=== PATIENT | female | born 1940 | race Two or more races ===

== ENCOUNTER 2017-10-11 10:29 | Inpatient (IN) | payer MEDICAID ==
[~2017-10-11] VITALS: Ht 152.4 cm; Wt 73.0 kg
--- NOTE | 2017-10-11 10:35 | NUR ---
AAOX3, BIBRA 62 FROM HOME C/O MID BACK PAIN S/P TRIPPED AND FALL, -KO. RR IS EVEN AND UNLABORED WITH NAD NOTED. SKIN IS WARM AND DRY. AWAITING MD FOR EVAL.
[2017-10-11] MEDS ORDERED: ONDANSETRON HCL/PF 4 MG/2 ML VIAL ONE (11:46)
[2017-10-11] MEDS ORDERED: MORPHINE SULFATE INJ 4 MG/ML DISP.SYRIN ONE ×2 (11:47→14:08)
[2017-10-11 11:53] LABS: BASOPHILS # (AUTO) 0.1 /CMM (0.0-0.2); EOSINOPHILS % (AUTO) 1.9 % (0.0-6.0); HEMATOCRIT 44 % (33-45); HEMOGLOBIN 14.8 g/dL (11.5-14.8); LYMPHOCYTES # (AUTO) 2.6 /CMM (0.8-4.8); LYMPHOCYTES % (AUTO) 21.3 % (20.0-44.0); MEAN CORPUSCULAR HGB CONC 34 g/dl (31.0-36.0); MEAN CORPUSCULAR VOLUME 90 fL (82-100); MONOCYTES # (AUTO) 0.8 /CMM (0.1-1.30); MONOCYTES % (AUTO) 6.5 % (2.0-12.0); NEUTROPHILS # (AUTO) 8.7 /CMM (1.8-8.9); NEUTROPHILS % (AUTO) 69.3 % (43.0-81.0); PLATELET COUNT (AUTO) 189 /CMM (150-450); RDW COEFFICIENT OF VARIATION 12.9 (11.5-15.0); RED BLOOD CELL COUNT(AUTO) 4.88 MIL/uL (4.0-5.2); WHITE BLOOD COUNT (AUTO) 12.4 K/uL (4.3-11.0)
[2017-10-11] MEDS ORDERED: ONDANSETRON HCL/PF 4 MG/2 ML VIAL IV ONE (12:00)
[2017-10-11] MEDS ORDERED: MORPHINE SULFATE INJ 2 MG/ML DISP.SYRIN IV ONE ×2 (12:00→14:30)
[2017-10-11 12:02] LABS: CALCIUM, SERUM 9.5 mg/dL (8.5-10.1); CARBON DIOXIDE 29 mmol/L (21-32); CHLORIDE 102 mmol/L (98-107); GLUCOSE 87 mg/dL (74-106); SODIUM SERUM 137 mmol/L (136-145); UREA NITROGEN, BLOOD 22 mg/dL (7-18)
[2017-10-11] MEDS ORDERED: LABETALOL HCL IV 100MG VIAL IV ONE ×2 (12:30)
[2017-10-11] MEDS ORDERED: TDAP [DIPH/PERTUSSIS/TET] 0.5 ML VIAL IM ONE ×2 (13:43→14:00)
--- NOTE | 2017-10-11 13:47 | NUR ---
Patient discharged to home in stable condition. Written and verbal after care instructions given. Patient verbalizes understanding of instruction.
--- NOTE | 2017-10-11 13:47 | NUR ---
IV removed. Catheter intact and site benign. Pressure and 4x4 applied to site. No bleeding noted.
--- NOTE | 2017-10-11 14:11 | NUR ---
SUP CALLED FOR MS BED
[2017-10-11] MEDS ORDERED: OMEP20TA5 PO (15:00)
[2017-10-11] MEDS ORDERED: BENA40TA8 PO (15:00)
[2017-10-11] MEDS ORDERED: OXYB5TAB11 PO (15:00)
[2017-10-11] MEDS ORDERED: PRED5TAB PO (15:00)
[2017-10-11] MEDS ORDERED: CYCL5TAB PO (15:00)
--- NOTE | 2017-10-11 15:00 | NUR ---
REPORT GIVEN TO TOD BUTTS FOR JUDSON
--- NOTE | 2017-10-11 15:09 | NUR ---
GIVEN REPORT TO TOD MS ROOM 202
[2017-10-11] MEDS ORDERED: ONDANSETRON HCL/PF 4 MG/2 ML VIAL IVP PRN (15:30)
[2017-10-11] MEDS ORDERED: Z GUARD REMEDY 2 OZ OINT TP PRN (15:30)
[2017-10-11] MEDS ORDERED: HYDROCODONE/APAP 5/325MG 1 EACH TABLET PO PRN (15:30)
--- NOTE | 2017-10-11 15:40 | NUR ---
OPTIMIZATION ANALYST NOTES PATIENT RECEIVED FROM ER VIA GURNEY, AWAKE ALERT AND VERBALLY RESPONSIVE, ABLE TO MAKE NEEDS KNOWN. RESPIRATIONS EVEN AND UNLABORED, SPO2 REMAINS STABLE ON RA. PATIENT CONTINUED ON PAIN MANAGEMENT, PT REPORTS PAIN UPON MOVEMENT, OFFERED PAIN MEDICATION X3 REFUSING AT THIS TIME "IT ONLY HURTS WHEN I MOVE AND I DONT WANT TO BE MOVED AROUND AT THIS TIME, I WANT TO REST I DONT WANT TO BE BOTHERED AT THIS TIME" EXPLAINED TO PT UNIT PROTOCOL TO CHECK SKIN PER PT WANTS TO REATTEMPT "LATER" . DR MURGUIA MADE AWARE PT IS ON UNIT, WILL CONTINUE TO CARRY OUT ADMISSION ORDERS, PT ORIENTED TO ROOM AND UNIT, FAMILY AT BEDSIDE. IV SITE TO LEFT AC 20G PATENT AND INTACT NO REDNESS OR INFILTRATION NOTED, WILL CONTINUE TO MONITOR
[2017-10-11 16:00] VITALS: BP 156/72
[2017-10-11] MEDS: ENOXAPARIN SODIUM 40 MG/0.4 ML DISP.SYRIN SQ SCH (17:15)
--- NOTE | 2017-10-11 19:03 | NUR ---
RN CLOSING NOTES PATIENT AWAKE ALERT AND VERBALLY RESPONSIVE, ABLE TO MAKE NEEDS KNOWN. RESPIRATIONS EVEN AND UNLABORED, SPO2 REMAINS STABLE ON RA. PATIENT CONTINUED ON PAIN MANAGEMENT, PT REPORTS PAIN UPON MOVEMENT, OFFERED PAIN MEDICATION X3 REFUSING AT THIS TIME "IT ONLY HURTS WHEN I MOVE AND I DONT WANT TO BE MOVED AROUND AT THIS TIME, I WANT TO REST I DONT WANT TO BE BOTHERED AT THIS TIME" . PATIENT AGREED TO SKIN CHECK AND PICTURES IN CHART, WILL CONTINUE TO CARRY OUT ADMISSION ORDERS, PT ORIENTED TO ROOM AND UNIT, FAMILY AT BEDSIDE. IV SITE TO LEFT AC 20G PATENT AND INTACT NO REDNESS OR INFILTRATION NOTED, WILL CONTINUE TO MONITOR AND ENDORSE TO NEXT SHIFT FOR CONTINUITY OF CARE
[2017-10-11 20:00] VITALS: BP 105/67
[2017-10-11] MEDS: ACETAMINOPHEN 325 MG TABLET PO PRN (20:46)
--- NOTE | 2017-10-12 06:38 | NUR ---
MS RN NOTES AWAKE & RESPONSIVE. NOT IN ANY DISTRESS. NO SOB NOTED. DENIES ANY PAIN OR DISCOMFORT AT THIS TIME. WITH IV-HL PATENT & INTACT. CALL LIGHT WITHIN REACH. BED IN LOWEST POSITION. SR UP X 3 WITH BED ALARM ON FOR SAFETY. WILL ENDORSE TO NEXT SHIFT.
[2017-10-12 06:54] LABS: BASOPHILS % (AUTO) 0.3 % (0.0-2.0); EOSINOPHILS % (AUTO) 2.5 % (0.0-6.0); HEMATOCRIT 40 % (33-45); HEMOGLOBIN 13.6 g/dL (11.5-14.8); LYMPHOCYTES % (AUTO) 23.1 % (20.0-44.0); MEAN CORPUSCULAR HGB CONC 34 g/dl (31.0-36.0); MEAN CORPUSCULAR VOLUME 90 fL (82-100); MONOCYTES # (AUTO) 0.4 /CMM (0.1-1.30); MONOCYTES % (AUTO) 4.7 % (2.0-12.0); NEUTROPHILS # (AUTO) 6.1 /CMM (1.8-8.9); NEUTROPHILS % (AUTO) 69.4 % (43.0-81.0); PLATELET COUNT (AUTO) 157 /CMM (150-450); RDW COEFFICIENT OF VARIATION 13.6 (11.5-15.0); RED BLOOD CELL COUNT(AUTO) 4.43 MIL/uL (4.0-5.2); WHITE BLOOD COUNT (AUTO) 8.7 K/uL (4.3-11.0)
--- NOTE | 2017-10-12 07:09 | NUR ---
MS/RN Patient received Patient received from restaurant shift supervisor. Sleeping soundly, appears in no distress. Call light within reach, safety measures in place. Will continue to monitor and ensure safety.
[2017-10-12 07:15] LABS: ALANINE AMINOTRANSFERASE 26 U/L (12-78); ALKALINE PHOSPHATASE 66 U/L (46-116); ASPARTATE AMINOTRANSFERASE 18 U/L (15-37); BILIRUBIN,TOTAL 0.5 mg/dL (0.2-1.0); CALCIUM, SERUM 9.4 mg/dL (8.5-10.1); CARBON DIOXIDE 29 mmol/L (21-32); CHLORIDE 105 mmol/L (98-107); GLUCOSE 79 mg/dL (74-106); PHOSPHORUS 4.5 mg/dL (2.5-4.9); POTASSIUM 4.7 mmol/L (3.5-5.1); SODIUM SERUM 139 mmol/L (136-145); UREA NITROGEN, BLOOD 20 mg/dL (7-18)
[2017-10-12 07:24] LABS: CHOLESTEROL 181 mg/dL (<200); HDL CHOLESTEROL 44 mg/dL (40-60); LDL 117 mg/dL (0-99); THYROID STIMULATING HORMONE 1.931 uIU/mL (0.358-3.74); TRIGLYCERIDES 137 mg/dL (30-150)
[2017-10-12 07:25] LABS: IRON, SERUM 81 ug/dl (50-175); TOTAL IRON BINDING CAPACITY 293 ug/dl (250-450)
[2017-10-12 08:00] VITALS: BP 194/98
[2017-10-12] MEDS: PANTOPRAZOLE 40 MG TABLET.DR PO SCH (08:08)
[2017-10-12] MEDS: BENAZEPRIL HCL 20 MG TABLET PO SCH (08:08)
[2017-10-12] MEDS: OXYBUTYNIN CHLORIDE 5 MG TABLET PO SCH (08:08)
[2017-10-12] MEDS: ACETAMINOPHEN 325 MG TABLET PO PRN (08:08)
[2017-10-12] MEDS: predniSONE 5 MG TABLET PO SCH (08:08)
[2017-10-12 08:33] VITALS: BP 194/90
--- NOTE | 2017-10-12 09:15 | NUR ---
MS/RN 2D echo 2Decho carried out at bedside
[2017-10-12 09:30] VITALS: BP 122/78
--- NOTE | 2017-10-12 09:31 | NUR ---
MS/RN Hypertension Patient hypertensive at 194/90, morning medications administered. BP rechecked after one hour, now 122/78.
--- NOTE | 2017-10-12 09:41 | NUR ---
MS/RN PT eval PT eval on hold until clarification from Dr Espitia. Patient has acute versus chronic compression fracture of T6.
--- NOTE | 2017-10-12 10:59 | NUR ---
MS/RN [facility] called to order corest brace for patient. Face sheet and doctors order faxed to company, freezer laboratory technician will be out to fit patient.
--- NOTE | 2017-10-12 12:29 | NUR ---
MS/RN Corset brace Patient fitted for corset brace.
--- NOTE | 2017-10-12 15:15 | NUR ---
MS/RN S/B William Espitia Seen by Dr Espitia's SOCIAL CONTACT WORKER student. Orders noted and carried out.
[2017-10-12 16:00] VITALS: BP 143/76
--- NOTE | 2017-10-12 16:36 | NUR ---
MS/lockstitch pocket setter update Family at bedside and updated as to plan of care. Patients daughter Gita requesting to be called by MD in morning.
--- NOTE | 2017-10-12 17:25 | NUR ---
MS/RN Hold discharge Discharge order entered by William Espitia. Informed that patient's family are requesting for patient to stay one more day as nobody is able to stay with patient tonight.
--- NOTE | 2017-10-12 18:25 | NUR ---
MS/RN End note No changes in condition. Patient requires frequent reinforcement of spinal precautions, encouraged to wear brace at all times. Family at bedside and updated as to plan of care. For discharge tomorrow, exit care prepared. Will endorse to mold shifter.
[2017-10-12] MEDS: ENOXAPARIN SODIUM 40 MG/0.4 ML DISP.SYRIN SQ SCH (21:12)
[2017-10-12 21:43] VITALS: BP 166/84
[2017-10-13] MEDS: ACETAMINOPHEN 325 MG TABLET PO PRN (05:23)
[2017-10-13 05:59] VITALS: BP 198/110
--- NOTE | 2017-10-13 05:59 | NUR ---
MS RN NOTES PT C/O CHEST PAIN. BP 198/110, HR 63, T 98.1 RR 20 O2 SAT 100%. CALLED [facility]. JUANITA MADE AWARE RE PT'S CONDITION. PT ALSO COMPLAINING OF GAS PAIN. WITH NEW ORDERS MADE. ORDERS NOTED AND CARRIED OUT. WILL CONTINUE TO MONITOR.
[2017-10-13] MEDS ORDERED: hydrALAZINE HCL IV 20 MG VIAL IV ONE (06:00)
[2017-10-13] MEDS ORDERED: MAG HYDROX/AL HYDROX/SIMETH 30 ML UDC PO ONE (06:00)
[2017-10-13] MEDS ORDERED: CLONIDINE HCL 0.1 MG TABLET PO ONE (06:30)
[2017-10-13 06:54] VITALS: BP 152/84
--- NOTE | 2017-10-13 06:59 | NUR ---
MS RN NOTES AWAKE & RESPONSIVE. NOT IN ANY DISTRESS. NO SOB NOTED. DENIES ANY PAIN OR DISCOMFORT AT THIS TIME. WITH IV-HL PATENT & INTACT. AM CARE DONE. MONITORED ACCORDINGLY. CALL LIGHT WITHIN REACH. BED IN LOWEST POSITION. SR UP X2 FOR SAFETY. WILL ENDORSE TO NEXT SHIFT.
--- NOTE | 2017-10-13 07:30 | NUR ---
RN OPENING NOTES RECEIVED PATIENT AWAKE & RESPONSIVE. NOT IN ANY DISTRESS. NO SOB NOTED. DENIES ANY PAIN OR DISCOMFORT AT THIS TIME. IV SITE PATENT & INTACT. CALL LIGHT WITHIN REACH. BED IN LOWEST POSITION. SR UP X2 FOR SAFETY. WILL CONTINUE TO MONITOR ACCORDINGLY.
[2017-10-13 08:00] VITALS: BP 122/67
[2017-10-13 08:47] VITALS: BP 122/67
[2017-10-13] MEDS: BENAZEPRIL HCL 20 MG TABLET PO SCH (08:47)
[2017-10-13] MEDS: OXYBUTYNIN CHLORIDE 5 MG TABLET PO SCH (08:47)
[2017-10-13] MEDS: predniSONE 5 MG TABLET PO SCH (08:47)
[2017-10-13] MEDS: PANTOPRAZOLE 40 MG TABLET.DR PO SCH (08:48)
--- NOTE | 2017-10-13 12:00 | NUR ---
RN NOTES DR MURGUIA MADE ROUNDS EARLIER WITH THE PATIENT, DISCHARGE INSTRUCTIONS GIVEN. PATIENT REPORTED NO BM TO MD. NEW ORDERS NOTED AND CARRIED OUT.
[2017-10-13] MEDS ORDERED: MAGNESIUM HYDROXIDE 30 ML UDC PO PRN (13:00)
--- NOTE | 2017-10-13 13:27 | NUR ---
RN NOTES MILK OF MAGNESIA GIVEN FOR CONSTIPATION ORDERED.
--- NOTE | 2017-10-13 13:29 | NUR ---
RN NOTES RECEIVED WALKER FROM [employer] FOR PATIENT TO BRING HOME. PHYSICAL THERAPIST ASSEMBLED THE WALKER, PATIENT WALKED WITH PT.
--- NOTE | 2017-10-13 14:48 | NUR ---
E [employer] NOTES DISCHARGED PATIENT IN STABLE CONDITION. PICKED UP BY SON, ACCOMPANIED BY WILIAM JIMENES TO THE LOBBY. DISCHARGE INSTRUCTIONS GIVEN TO SON, VERBALIZED UNDERSTANDING. DISCHARGE PAPERWORK GIVEN, ALL BELONGINGS RETURNED, FORMS SIGNED. REMOVED IV, APPLIED PRESSURE, NO BLEEDING, NO COMPLICATION. REMOVED NAME BAND.
== END 2017-10-13 14:40 | disposition home or self-care (01) | DRG 542 ==
LOC: EDBD 10:41 → ER 10:41 → MEDSG2 15:15
PROVIDERS: ADMIT Nurse Practitioner Acute Care; ATTEND Nurse Practitioner Acute Care
DX: M80.88XA Other osteoporosis with current pathological fracture, vertebra(e), initial encounter for fracture (principal); N17.0 Acute kidney failure with tubular necrosis; W18.30XA Fall on same level, unspecified, initial encounter; D72.829 Elevated white blood cell count, unspecified; E66.9 Obesity, unspecified; I10 Essential (primary) hypertension; K21.9 Gastro-esophageal reflux disease without esophagitis; Z86.73 Personal history of transient ischemic attack (TIA), and cerebral infarction without residual deficits; Y93.9 Activity, unspecified; Y92.009 Unspecified place in unspecified non-institutional (private) residence as the place of occurrence of the external cause; Z68.31 Body mass index [BMI] 31.0-31.9, adult; L98.8 Other specified disorders of the skin and subcutaneous tissue
CPT/HCPCS: 36415; 70450-TC; 71045-TC; 72070-TC; 72125-TC; 72128-TC; 80048-TC; 80053-TC; 80061-TC; 83540-TC; 83735-TC; 84100-TC; 84443-TC; 84484-TC; 85025-TC; 87081-TC; 90715; 93307-TC; 97116-TC; 97530-TC; A4606; J1650; J2270; J2405; J7512; Z7610